=== PATIENT | female | born 1975 | race Caucasian/White ===

== ENCOUNTER 2017-06-05 09:12 | Emergency (ER) | payer OTHER | END 2017-06-05 10:00 | disposition home or self-care (01) | LOC: FER 09:12 | DX: J18.1 Lobar pneumonia, unspecified organism (principal); E86.0 Dehydration; J44.9 Chronic obstructive pulmonary disease, unspecified; Z86.73 Personal history of transient ischemic attack (TIA), and cerebral infarction without residual deficits; Z87.891 Personal history of nicotine dependence; Z88.5 Allergy status to narcotic agent ==